=== PATIENT | female | born 1995 | race Caucasian/White ===

== ENCOUNTER 2020-05-10 22:31 | Emergency (ER) | payer OTHER ==
[~2020-05-10] VITALS: Ht 162.6 cm; Wt 47.6 kg
--- NOTE | 2020-05-10 22:31 | NUR ---
PT BIB [facility], PREBOOK. TAKEN TO [facility]
[2020-05-10 22:33] VITALS: BP 116/77
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
--- NOTE | 2020-05-10 23:06 | NUR ---
PATIENT BIB [facility]. PATIENT EXAMINED BY DR. TATE. PATIENT MEDICALLY CLEARED AND RELEASED IN CUSTODY IN STABLE CONDITION. ORIGINAL PRE-BOOK FORM GIVEN TO OFFICER MARGRET, #[id number]
== END 2020-05-10 23:06 ==
LOC: MED 22:31
DX: F32.9 Major depressive disorder, single episode, unspecified (principal); Z04.1 Encounter for examination and observation following transport accident; Z02.89 Encounter for other administrative examinations; V89.2XXA Person injured in unspecified motor-vehicle accident, traffic, initial encounter; Y93.89 Activity, other specified; Y92.89 Other specified places as the place of occurrence of the external cause; Y99.8 Other external cause status
CPT/HCPCS: 99283